=== PATIENT | female | born 1970 | race Asian ===

== ENCOUNTER → 2017-04-22 | Day surgery (SDC) | payer OTHER ==
--- NOTE | 2017-04-23 12:15 | PATH ---
Cytology Non-Gynecological Report Patient Name: TAVIA SCHREIBER [facility]. Rec. #: [id number] /Age/Gender: 1970 (Age: 46) / F Account: [id number] Location: RADIOLOGY [facility] Taken: 04/22/2017 Received: 04/22/2017 Reported: 04/23/2017 Physicians: Lucretia Koo M.D. Specimen(s) Received BREAST,ULTRA SOUND GUIDED FNA Clinical History Breast cyst Final Diagnosis BREAST, LEFT, 1-2:00, AREOLA, CYST, ULTRASOUND GUIDED FINE NEEDLE ASPIRATION: SATISFACTORY FOR EVALUATION. NO MALIGNANT CELLS IDENTIFIED. PROTEINACEOUS DEBRIS AND RARE MACROPHAGES CONSISTENT WITH CYST CONTENTS. Electronically Signed Ana Delarosa M.D. Gross Description Approximately 30 cc of yellow fluid received fixed in 50% alcohol. Four cytofunnels prepared.
--- NOTE | 2017-04-23 14:42 | PATH ---
Surgical Pathology Report Patient Name: TAVIA SCHREIBER [facility]. Rec. #: [id number] /Age/Gender: 1970 (Age: 46) / F Account: [id number] Location: RADIOLOGY [facility] Taken: 04/22/2017 Received: 04/22/2017 Reported: 04/23/2017 Physicians: Mara Mabry M.D. Specimen(s) Received LEFT BREAST CORE BIOPSY AT 11:00 Clinical History Nonpalpable lesion Ultrasound findings: Probably benign 0.4 cm mass U/S Final Diagnosis BREAST, LEFT, 11:00, ULTRASOUND GUIDED CORE BIOPSY: BENIGN BREAST TISSUE WITH STROMAL FIBROSIS, CHRONIC INFLAMMATION, HISTIOCYTIC PROLIFERATION AND REACTIVE CHANGES CONSISTENT WITH CYST RUPTURE. Electronically Signed nAa Delarosa M.D. Gross Description Received in formalin, labeled "left 11:00," are 3 schaefer-yellow, cylindrical portions of fibroadipose tissue ranging from 0.9-1.4 cm. in length and averaging 0.1 cm. in diameter. The specimen is submitted in toto in one cassette. Total formalin fixation time: Between 8-15 hours DL/04/22/2017 saudi04/22/2017
== END | disposition home or self-care (01) ==
LOC: JRADUS-SUR 11:32
PROVIDERS: ATTEND Surgery
PROC: 0HBU3ZX Excision of Left Breast, Percutaneous Approach, Diagnostic (ICD-10-PCS; principal; 2017-04-22)
PROC: 0H9U3ZX Drainage of Left Breast, Percutaneous Approach, Diagnostic (ICD-10-PCS; 2017-04-22)
DX: D24.2 Benign neoplasm of left breast (principal); N60.02 Solitary cyst of left breast
CPT/HCPCS: 19083; 76942-TC; 87899; A4648

== ENCOUNTER 2017-06-06 05:13 | Day surgery (SDC) | payer OTHER ==
[2017-06-04 13:21] VITALS: BMI 27.3
[2017-06-06] MEDS ORDERED: ACETAMINOPHEN 325 MG TABLET (FP) PO PRN (08:21)
[2017-06-06] MEDS ORDERED: IBUPROFEN 400 MG TABLET (FP) PO PRN (08:21)
--- NOTE | 2017-06-06 10:08 | HP ---
History & Physical Update - History History: No Change - Physical Physical: No Change - Assessment Assessment: No Change - Plan Plan: No Change (No changes to HP)
[2017-06-06] MEDS ORDERED: ceFAZolin SODIUM 1 GM VIAL IVPB ONE (10:53)
[2017-06-06] MEDS ORDERED: PROMETHAZINE HCL 25 MG/1 ML VIAL IVPUSH PRN (11:39)
[2017-06-06] MEDS ORDERED: ONDANSETRON 4 MG/2 ML VIAL IVPUSH PRN (11:39)
--- NOTE | 2017-06-06 11:42 | OP ---
Operative Note - Note: Operative Date: 06/06/17 Pre-Operative Diagnosis: Menorrhagia. endometrial polyps Operation: Hysteroscpic myomectomy. Suction DC Findings: Large amount of endometrial polyps Post-Operative Diagnosis: Same as Pre-op Surgeon: Mariana Bledsoe Anesthesia: General Estimated Blood Loss (mls): 5 Operative Report Dictated: Yes
[2017-06-06] MEDS ORDERED: LACTATED RINGERS SOLUTION 1,000 ML IV SCH (11:45)
[2017-06-06] MEDS ORDERED: oxyCODONE HCL 5 MG TABLET PO PRN (11:57)
[2017-06-06 12:04] VITALS: TEMP 97.5
[2017-06-06 14:50] VITALS: BP 134/73; PULSE 73
--- NOTE | 2017-06-07 15:56 | PATH ---
Surgical Pathology Report Patient Name: TAVIA SCHREIBER [facility]. Rec. #: [id number] /Age/Gender: 1970 (Age: 46) / F Account: [id number] Location: [facility] SURGICAL Taken: 06/06/2017 Received: 06/06/2017 Reported: 06/07/2017 Physicians: Mariana Bledsoe M.D. Specimen(s) Received A: ENDOMETRIAL POLYPS B: ENDOMETRIAL CURETTINGS Clinical History Menorrhagia, submucosal myoma Final Diagnosis A. UTERUS, ENDOMETRIAL POLYPS, DILATION AND CURETTAGE: FRAGMENTS OF ENDOMETRIAL POLYP AND SUPERFICIAL MYOMETRIUM. B. ENDOMETRIAL CURETTINGS, DILATION AND CURETTAGE: FRAGMENTS OF ENDOMETRIAL POLYP AND SUPERFICIAL MYOMETRIUM. Electronically Signed Ana Delarosa M.D. Gross Description A. Received in formalin labeled "endometrial polyps," is a 2.4 x 2.0 x 0.2 cm aggregate of schaefer-pink, irregular to polypoid portions of soft tissue. The specimen is submitted in toto in one cassette. B. Received in formalin labeled "endometrial curettings," is a 4.0 x 3.3 x 0.4 cm aggregate of schaefer red soft tissue fragments. The formalin is filtered and the specimen is entirely submitted in 3 cassettes. 06/06/2017 [facility]06/06/2017
--- NOTE | 2017-06-24 23:01 | OP ---
DATE OF OPERATION: 06/06/2017 PREOPERATIVE DIAGNOSIS: Menorrhagia, submucosal myomas or endometrial polyps. OPERATION: Hysteroscopic myomectomy, suction dilation and curettage. POSTOPERATIVE DIAGNOSIS: Menorrhagia, submucosal myomas or endometrial polyps. SURGEON: Mariana Bledsoe M.D. ANESTHESIA: General anesthesia. DESCRIPTION OF PROCEDURE: Patient was taken to the operating room, placed in dorsal lithotomy position, prepped and draped in the usual sterile fashion. A timeout was performed in accordance with the hospital regulation. Speculum was placed in the vagina, anterior lip of the cervix grasped with a single-toothed tenaculum, cervix then dilated to accommodate the upper hysteroscope. Hysteroscopy was then performed and endometrial polyps were seen. Cautery and cutting of the endometrial polyps was done. Suction D&C of all polyps of the endometrial cavity was performed. Visualization revealed no endometrial polyps and a clean endometrium. All instruments were then removed. Patient tolerated procedure well. Estimated blood loss 20 mL. Patient was taken to the recovery room in stable condition. Count was noted to be correct. Mara DAWN/[id number]
== END 2017-06-06 13:15 | disposition home or self-care (01) ==
LOC: JASU-SURG 05:13
PROVIDERS: ATTEND Obstetrics & Gynecology
PROC: 0UB98ZZ Excision of Uterus, Via Natural or Artificial Opening Endoscopic (ICD-10-PCS; principal; 2017-06-06 09:30)
PROC: 0UDB7ZX Extraction of Endometrium, Via Natural or Artificial Opening, Diagnostic (ICD-10-PCS; 2017-06-06 09:30)
PROC: 0UJD8ZZ Inspection of Uterus and Cervix, Via Natural or Artificial Opening Endoscopic (ICD-10-PCS; 2017-06-06 09:30)
DX: N92.0 Excessive and frequent menstruation with regular cycle (principal); D25.0 Submucous leiomyoma of uterus; N84.0 Polyp of corpus uteri
CPT/HCPCS: 88305-TC; 94760